=== PATIENT | female | born 1930 | race Two or more races ===

== ENCOUNTER 2019-03-02 12:26 | Observation (INO) | payer MEDICARE ==
[2019-03-02 12:36] VITALS: RESP 18
[2019-03-02 14:11] LABS: Basophils % (A) 1 %; Eosinophils # (A) 0.3 k/uL (0-0.7); Eosinophils % (A) 4 %; HCT 40.3 % (34.0-46.0); HGB 13.3 gm/dL (11.4-16.0); Lymphocytes # (A) 1.7 k/uL (1.0-4.8); Lymphocytes % (A) 20 %; MCH 29.2 pg (25.0-35.0); MCV 88.5 fL (80.0-100.0); Mean Platelet Volume 7.9; Monocytes # (A) 0.5 k/uL (0-1.0); Monocytes % (A) 6 %; Neutrophils # (A) 5.9 k/uL (1.3-7.7); Neutrophils % (A) 68 %; Platelet Count 252 k/uL (150-450); RBC 4.55 m/uL (3.80-5.40); RDW 15.4 % (11.5-15.5); WBC 8.6 k/uL (3.8-10.6)
[2019-03-02 14:19] LABS: INR 0.9 (<1.2); Partial Thromboplastin Time 25.4 sec (22.0-30.0); Prothrombin Time 9.7 sec (9.0-12.0)
--- NOTE | 2019-03-02 14:22 | ED ---
Recheck HPI - General Chief Complaint: Recheck/Abnormal Lab/Rx Stated Complaint: abn EKG, lt jaw pain Time Seen by Provider: 03/02/19 12:38 Source: patient, family, RN notes reviewed Mode of arrival: ambulatory Limitations: no limitations - History of Present Illness Initial Comments: Physical 87-year-old female who was sent in from her doctor's office with complaints of several days a left jaw pain is intermittent. He denies any pain in her arm chest shortness of breath fevers chills nausea vomiting sweats or other symptoms no dental issues no pain with chewing. Concern is for cardiac disease. She currently is pain-free - Related Data Home Medications Medication Instructions Recorded Confirmed Atorvastatin Calcium [Lipitor] 20 mg PO HS 03/02/19 03/02/19 Levothyroxine Sodium [Synthroid] 100 mcg PO DAILY 03/02/19 03/02/19 Losartan [Cozaar] 25 mg PO DAILY 03/02/19 03/02/19 Metoprolol Tartrate [Lopressor] 25 mg PO BID 03/02/19 03/02/19 QUEtiapine [SEROquel] 25 mg PO HS 03/02/19 03/02/19 Allergies Allergy/AdvReac Type Severity Reaction Status Date / Time No Known Allergies Allergy Verified 03/02/19 13:10 Review of Systems ROS Statement: Those systems with pertinent positive or pertinent negative responses have been documented in the HPI. ROS Other: All systems not noted in ROS Statement are negative. Past Medical History Past Medical History: Myocardial Infarction ([place]) Additional Past Medical History / Comment(s): macular degeneration History of Any Multi-Drug Resistant Organisms: None Reported Past Surgical History: Hysterectomy Past Psychological History: No Psychological Hx Reported Smoking Status: Never smoker Past Alcohol Use History: None Reported Past Drug Use History: None Reported General Exam - General Exam Comments Initial Comments: This is a well-developed well-nourished awake alert oriented 3 female Limitations: no limitations General appearance: alert, in no apparent distress Head exam: Present: atraumatic, normocephalic, normal inspection Eye exam: Present: normal appearance, PERRL, EOMI. Absent: scleral icterus, conjunctival injection, periorbital swelling ENT exam: Present: normal exam, mucous membranes moist Neck exam: Present: normal inspection, full ROM, other (No stridor JVD or bruits). Absent: tenderness, meningismus, lymphadenopathy Respiratory exam: Present: normal lung sounds bilaterally. Absent: respiratory distress, wheezes, rales, rhonchi, stridor Cardiovascular Exam: Present: regular rate, normal rhythm, normal heart sounds. Absent: systolic murmur, diastolic murmur, rubs, gallop, clicks GI/Abdominal exam: Present: soft, normal bowel sounds. Absent: distended, tenderness, guarding, rebound, rigid, bruit, pulsatile mass Extremities exam: Present: normal inspection, full ROM, normal capillary refill. Absent: tenderness, pedal edema, joint swelling, calf tenderness Back exam: Present: normal inspection Neurological exam: Present: alert, oriented X3, CN II-XII intact Psychiatric exam: Present: normal affect, normal mood Skin exam: Present: warm, dry, intact, normal color. Absent: rash Course Vital Signs 03/02/19 03/02/19 03/02/19 12:32 15:25 16:30 Temperature 97.9 F Pulse Rate 71 81 72 Respiratory 18 18 18 Rate Blood Pressure 171/75 184/82 182/87 O2 Sat by Pulse 97 94 L 96 Oximetry Medical Decision Making - Medical Decision Making Patient has had intermittent pain in the left jaw questionable changes with nitroglycerin. I did discuss the findings the patient family members as well as Dr. Armijo patient will be admitted for evaluation angina. - Lab Data Result diagrams: 03/02/19 13:47 03/02/19 13:47 Lab Results 03/02/19 03/02/19 03/02/19 Range/Units 13:47 13:47 13:47 WBC 8.6 (3.8-10.6) k/uL RBC 4.55 (3.80-5.40) m/uL Hgb 13.3 (11.4-16.0) gm/dL Hct 40.3 (34.0-46.0) % MCV 88.5 (80.0-100.0) fL MCH 29.2 (25.0-35.0) pg MCHC 33.0 (31.0-37.0) g/dL RDW 15.4 (11.5-15.5) % Plt Count 252 (150-450) k/uL Neutrophils % 68 % Lymphocytes % 20 % Monocytes % 6 % Eosinophils % 4 % Basophils % 1 % Neutrophils # 5.9 (1.3-7.7) k/uL Lymphocytes # 1.7 (1.0-4.8) k/uL Monocytes # 0.5 (0-1.0) k/uL Eosinophils # 0.3 (0-0.7) k/uL Basophils # 0.0 (0-0.2) k/uL PT (9.0-12.0) sec INR (<1.2) APTT (22.0-30.0) sec Sodium 140 (137-145) mmol/L Potassium 4.7 (3.5-5.1) mmol/L Chloride 106 (98-107) mmol/L Carbon Dioxide 26 (22-30) mmol/L Anion Gap 8 mmol/L BUN 24 H (7-17) mg/dL Creatinine 0.86 (0.52-1.04) mg/dL Est GFR (CKD-EPI)AfAm 70 (>60 ml/min/1.73 sqM) Est GFR (CKD-EPI)NonAf 61 (>60 ml/min/1.73 sqM) Glucose 110 H (74-99) mg/dL Calcium 9.6 (8.4-10.2) mg/dL Magnesium 2.3 (1.6-2.3) mg/dL Total Bilirubin 0.6 (0.2-1.3) mg/dL AST 26 (14-36) U/L ALT 16 (9-52) U/L Alkaline Phosphatase 86 (38-126) U/L Creatine Kinase 40 (30-135) U/L Troponin I (0.000-0.034) ng/mL NT-Pro-B Natriuret Pep 707 pg/mL Total Protein 7.0 (6.3-8.2) g/dL Albumin 4.2 (3.5-5.0) g/dL Lipase 120 (23-300) U/L 03/02/19 03/02/19 Range/Units 13:47 13:47 WBC (3.8-10.6) k/uL RBC (3.80-5.40) m/uL Hgb (11.4-16.0) gm/dL Hct (34.0-46.0) % MCV (80.0-100.0) fL MCH (25.0-35.0) pg MCHC (31.0-37.0) g/dL RDW (11.5-15.5) % Plt Count (150-450) k/uL Neutrophils % % Lymphocytes % % Monocytes % % Eosinophils % % Basophils % % Neutrophils # (1.3-7.7) k/uL Lymphocytes # (1.0-4.8) k/uL Monocytes # (0-1.0) k/uL Eosinophils # (0-0.7) k/uL Basophils # (0-0.2) k/uL PT 9.7 (9.0-12.0) sec INR 0.9 (<1.2) APTT 25.4 (22.0-30.0) sec Sodium (137-145) mmol/L Potassium (3.5-5.1) mmol/L Chloride (98-107) mmol/L Carbon Dioxide (22-30) mmol/L Anion Gap mmol/L BUN (7-17) mg/dL Creatinine (0.52-1.04) mg/dL Est GFR (CKD-EPI)AfAm (>60 ml/min/1.73 sqM) Est GFR (CKD-EPI)NonAf (>60 ml/min/1.73 sqM) Glucose (74-99) mg/dL Calcium (8.4-10.2) mg/dL Magnesium (1.6-2.3) mg/dL Total Bilirubin (0.2-1.3) mg/dL AST (14-36) U/L ALT (9-52) U/L Alkaline Phosphatase (38-126) U/L Creatine Kinase (30-135) U/L Troponin I <0.012 (0.000-0.034) ng/mL NT-Pro-B Natriuret Pep pg/mL Total Protein (6.3-8.2) g/dL Albumin (3.5-5.0) g/dL Lipase (23-300) U/L - EKG Data -: EKG Interpreted by Me EKG shows normal: sinus rhythm (Sinus rhythm rate is 77 appear of 01 84 QRS duration 80 QT since QTC 392/443 evidence of LVH nonspecific inferior and anterior configuration's there is demonstrating poor R-wave progression) - Radiology Data Radiology results: report reviewed (I did review the imaging and reports no evidence of acute findings.), image reviewed Disposition Clinical Impression: Jaw pain, non-TMJ, Angina at rest Disposition: ADMITTED IP TO THIS HOSP Condition: Stable Referrals: Clive Miner DO [Primary Care Provider] - 1-2 days
[2019-03-02 14:25] LABS: Albumin 4.2 g/dL (3.5-5.0); Calcium 9.6 mg/dL (8.4-10.2); Magnesium 2.3 mg/dL (1.6-2.3); Total Bilirubin 0.6 mg/dL (0.2-1.3)
[2019-03-02 14:26] LABS: Potassium 4.7 mmol/L (3.5-5.1)
--- NOTE | 2019-03-02 14:58 | XR ---
EXAMINATION TYPE: XR chest 2V DATE OF EXAM: 03/02/2019 COMPARISON: NONE TECHNIQUE: PA and lateral views submitted. HISTORY: Chest pain FINDINGS: The lungs are clear and there is no pneumothorax, pleural effusion, or focal pneumonia. Hypertrophi c and degenerative changes of the spine. No overt failure. Linear changes at the lung bases are most typical atelectasis. IMPRESSION: 1. No acute process.
[2019-03-02] MEDS ORDERED: NITROGLYCERIN SL TABS 0.4 MG TAB SUBLINGUAL STA (15:16)
[2019-03-02] MEDS ORDERED: SODIUM CHLORIDE 0.9% 500 ML 500 ML IV STA (15:16)
[2019-03-02] MEDS ORDERED: NITROGLYCERIN SL TABS 0.4 MG TAB SUBLINGUAL PRN (16:45)
[2019-03-02] MEDS ORDERED: HEPARIN SODIUM,PORCINE 5,000 UNIT/ML 1 ML VIAL IV ONE (16:45)
[2019-03-02] MEDS ORDERED: HEPARIN SOD,PORK IN 0.45% NACL 25,000 UNIT in 0.45% NACL 1 250ML.BAG IV SCH (16:45)
[2019-03-02] MEDS: NITROGLYCERIN OINT 1 INCH/GM PACKET TOPICAL SCH ×2 (17:40→23:13)
[2019-03-02] MEDS: SODIUM CHLORIDE 0.9% 1,000 ML IV SCH (17:40)
[2019-03-02 18:26] VITALS: BMI 24.2
[2019-03-02] MEDS: QUEtiapine 25 MG TAB PO SCH (19:49)
[2019-03-02] MEDS: METOPROLOL TARTRATE 25 MG TAB PO SCH (19:50)
[2019-03-02] MEDS: ATORVASTATIN 20 MG TAB PO SCH (19:50)
--- NOTE | 2019-03-02 22:07 | P.HPIM ---
History of Present Illness H&P Date: 03/02/19 Chief Complaint: Job pain History of presenting complaint: This is a very pleasant 88-year-old patient of Dr. Clive Alcala. Chronic stable medical conditions include coronary artery disease with a GA last August, macular degeneration, hard of hearing and osteoarthritis. Patient for about a week has been complaining of pain in the left side of the face below the left nostril going around to the left jaw. She describes it in a figure of C. there is no neck pain. No precordial pain. No radiation. No associated shortness of breath dizziness lightheadedness. Not related to activity. Not related to chewing activity. No associated neurological symptoms like change of vision headache or weakness. No fever no chills. Patient had gone to see her family doctor he center bed for rule out a cardiac cause. Review of systems: GEN.: None EYES: Decreased vision HEENT: Decreased hearing NECK: None RESPIRATORY: None CARDIOVASCULAR: None GASTROINTESTINAL: None GENITOURINARY: None MUSCULOSKELETAL: Some pain in the joints LYMPHATICS: None HEMATOLOGICAL: None PSYCHIATRY: None NEUROLOGICAL: None Past medical history: GA over a year ago, insomnia, hard of hearing, decreased vision, essential hypertension, hypothyroid Social history: Does not smoke or drink alcohol. Lives with her daughter. Family history: Myocardial infarction Physical examination: VITAL SIGNS: 97.9, 71, 18, 1 71 x 75, 97% room air GENERAL: BMI 24.2, laying in bed, comfortable. EYES: Pupils equal. Conjunctiva normal. HEENT: External appearance of nose and ears normal, oral cavity grossly normal, decreased hearing. NECK: JVD not raised; masses not palpable. HEART: First and second heart sounds are normal; no edema. LUNGS: Respiratory rate normal; clear to auscultation. ABDOMEN: Soft, nontender, liver spleen not palpable, no masses palpable. PSYCH: Alert and oriented x3; mood and affect normal. NEUROLOGICAL: Cranial nerves grossly intact; no facial asymmetry, power and sensation grossly intact. LYMPHATICS: No lymph nodes palpable in the axilla and neck MUSCULOSKELETAL: Evidence of OA especially in the hands Investigations: White count 8.6 hemoglobin 13.3 platelets 252 potassium 4.7 creatinine 0.86 Troponin I 2 negative EKG tracing personally reviewed by me shows nonspecific T-wave changes and poor R-wave progression Chest x-ray film personally reviewed by me shows no obvious infiltrates Assessment: -This is a patient with prior microinfarction presents with pain on the left face for about a week no other associated cardiac symptoms. Troponins are neg ative. Patient has some EKG changes but this well could be chronic. Symptoms are not compatible with acute coronary syndrome. -Coronary artery disease with prior history of GA -Chronic insomnia -Primary osteoarthritis -Hypothyroid -Essential hypertension Plan: Cardiology was consulted. We'll DC the IV heparin. Home medications resumed. Care was discussed the patient. Past Medical History Past Medical History: Myocardial Infarction ([place]) Additional Past Medical History / Comment(s): macular degeneration Last Myocardial Infarction Date:: History of Any Multi-Drug Resistant Organisms: None Reported Past Surgical History: Hysterectomy Additional Past Surgical History / Comment(s): carpal tunnel sx on left hand Past Psychological History: No Psychological Hx Reported Smoking Status: Never smoker Past Alcohol Use History: None Reported Past Drug Use History: None Reported - Past Family History Father Family Medical History: Myocardial Infarction ([place]) Medications and Allergies Home Medications Medication Instructions Recorded Confirmed Type Atorvastatin Calcium [Lipitor] 20 mg PO HS 03/02/19 03/02/19 History Levothyroxine Sodium [Synthroid] 100 mcg PO DAILY 03/02/19 03/02/19 History Losartan [Cozaar] 25 mg PO DAILY 03/02/19 03/02/19 History Metoprolol Tartrate [Lopressor] 25 mg PO BID 03/02/19 03/02/19 History QUEtiapine [SEROquel] 25 mg PO HS 03/02/19 03/02/19 History Allergies Allergy/AdvReac Type Severity Reaction Status Date / Time No Known Allergies Allergy Verified 03/02/19 13:10 Physical Exam Vitals: Vital Signs Temp Pulse Pulse Resp BP BP Pulse Ox 03/02/19 20:00 18 03/02/19 18:42 97 03/02/19 18:30 97.4 F L 67 18 194/75 97 03/02/19 17:30 98.3 F 71 18 163/79 95 03/02/19 16:30 72 18 182/87 96 03/02/19 15:25 81 18 184/82 94 L 03/02/19 12:32 97.9 F 71 18 171/75 97 Intake and Output 03/02/19 03/02/19 03/02/19 06:59 14:59 22:59 Other: Voiding Method Toilet Weight 54.431 kg Results CBC & Chem 7: 03/02/19 13:47 03/02/19 13:47 Labs: Abnormal Lab Results - Last 24 Hours (Table) 03/02/19 Range/Units 13:47 BUN 24 H (7-17) mg/dL Glucose 110 H (74-99) mg/dL Thrombosis Risk Factor Assmnt - Choose All That Apply Any of the Below Risk Factors Present?: No Other Risk Factors: Yes Each Risk Factor Represents 3 Points: Age 75 years or older Thrombosis Risk Factor Assessment Total Risk Factor Score: 3 Thrombosis Risk Factor Assessment Level: Moderate Risk
[2019-03-03 03:05] LABS: Cholesterol 143 mg/dL (<200); HDL Cholesterol 43 mg/dL (40-60); LDL Cholesterol,Calculated 68 mg/dL (0-99); Triglycerides 162 mg/dL (<150)
[2019-03-03] MEDS: ACETAMINOPHEN TAB 325 MG TAB PO PRN (03:53)
[2019-03-03] MEDS ORDERED: LOSARTAN 25 MG TAB PO STA (04:04)
[2019-03-03] MEDS ORDERED: METOPROLOL TARTRATE 25 MG TAB PO STA (04:04)
[2019-03-03] MEDS: NITROGLYCERIN OINT 1 INCH/GM PACKET TOPICAL SCH (06:22)
[2019-03-03] MEDS: LEVOTHYROXINE 100 MCG TAB PO SCH (06:29)
[2019-03-03] MEDS: SODIUM CHLORIDE 0.9% 1,000 ML IV SCH (08:26)
[2019-03-03] MEDS: ASPIRIN 81 MG PO SCH (08:35)
[2019-03-03] MEDS: METOPROLOL TARTRATE 25 MG TAB PO SCH ×2 (08:35→19:51)
[2019-03-03] MEDS ORDERED: ASPIRIN 325 MG TAB PO SCH (09:00)
[2019-03-03] MEDS ORDERED: LOSARTAN 25 MG TAB PO SCH (09:00)
--- NOTE | 2019-03-03 09:19 | P.CRDCN ---
History of Present Illness History of present illness: Patient interviewed and examined. Please see full dictation by nurse practitioner, RIOS Presented with jaw pain on the left side with normal chronic enzymes are normal ECG 3 Enzymes are normal Blood pressure was elevated up to 200/81 mmHg and this morning it is 160/70 mmHg She is on losartan 25 mg daily, metoprolol 25 g twice daily Plan Increase losartan to 25 mg twice daily Add hydrochlorothiazide 25 mg once daily starting today Continue low-dose metoprolol for now May go home once blood pressure is controlled and follow-up with Dr. Silverio within one week Hemoglobin 13.3, potassium 4.7, BUN 24 creatinine 0.86 magnesium 2.3 Sincere enzymes 3 are normal line LDL 68, total cholesterol 143, triglycerides 162 and HDL 43 Past Medical History Past Medical History: Myocardial Infarction ([place]) Additional Past Medical History / Comment(s): macular degeneration Last Myocardial Infarction Date:: History of Any Multi-Drug Resistant Organisms: None Reported Past Surgical History: Hysterectomy Additional Past Surgical History / Comment(s): carpal tunnel sx on left hand Past Psychological History: No Psychological Hx Reported Smoking Status: Never smoker Past Alcohol Use History: None Reported Past Drug Use History: None Reported - Past Family History Father Family Medical History: Myocardial Infarction ([place]) Medications and Allergies Home Medications Medication Instructions Recorded Confirmed Type Atorvastatin Calcium [Lipitor] 20 mg PO HS 03/02/19 03/02/19 History Levothyroxine Sodium [Synthroid] 100 mcg PO DAILY 03/02/19 03/02/19 History Losartan [Cozaar] 25 mg PO DAILY 03/02/19 03/02/19 History Metoprolol Tartrate [Lopressor] 25 mg PO BID 03/02/19 03/02/19 History QUEtiapine [SEROquel] 25 mg PO HS 03/02/19 03/02/19 History Allergies Allergy/AdvReac Type Severity Reaction Status Date / Time No Known Allergies Allergy Verified 03/02/19 13:10 Physical Exam Vitals: Vital Signs Temp Pulse Pulse Resp BP BP BP 03/03/19 08:00 97.8 F 70 18 160/70 03/03/19 06:29 55 L 115/55 03/03/19 04:00 97.4 F L 72 15 203/86 200/81 03/03/19 00:00 98.6 F 56 L 17 149/74 03/02/19 20:00 18 03/02/19 18:42 03/02/19 18:30 97.4 F L 67 18 194/75 03/02/19 17:30 98.3 F 71 18 163/79 03/02/19 16:30 72 18 182/87 03/02/19 15:25 81 18 184/82 03/02/19 12:32 97.9 F 71 18 171/75 Pulse Ox 03/03/19 08:00 97 03/03/19 06:29 03/03/19 04:00 97 03/03/19 00:00 97 03/02/19 20:00 03/02/19 18:42 97 03/02/19 18:30 97 03/02/19 17:30 95 03/02/19 16:30 96 03/02/19 15:25 94 L 03/02/19 12:32 97 Intake and Output 03/02/19 03/03/19 03/03/19 22:59 06:59 14:59 Other: Voiding Method Toilet Toilet # Voids 1 Weight 54.9 kg Results 03/02/19 13:47 03/02/19 13:47 Cardiac Enzymes 03/02/19 03/02/19 03/02/19 Range/Units 13:47 13:47 19:34 AST 26 (14-36) U/L Troponin I <0.012 <0.012 (0.000-0.034) ng/mL 03/03/19 Range/Units 01:45 AST (14-36) U/L Troponin I <0.012 (0.000-0.034) ng/mL Coagulation 03/02/19 Range/Units 13:47 PT 9.7 (9.0-12.0) sec APTT 25.4 (22.0-30.0) sec Lipids 03/02/19 Range/Units 13:47 Triglycerides 162 H (<150) mg/dL Cholesterol 143 (<200) mg/dL HDL Cholesterol 43 (40-60) mg/dL CBC 03/02/19 Range/Units 13:47 WBC 8.6 (3.8-10.6) k/uL RBC 4.55 (3.80-5.40) m/uL Hgb 13.3 (11.4-16.0) gm/dL Hct 40.3 (34.0-46.0) % Plt Count 252 (150-450) k/uL Comprehensive Metabolic Panel 03/02/19 Range/Units 13:47 Sodium 140 (137-145) mmol/L Potassium 4.7 (3.5-5.1) mmol/L Chloride 106 (98-107) mmol/L Carbon Dioxide 26 (22-30) mmol/L BUN 24 H (7-17) mg/dL Creatinine 0.86 (0.52-1.04) mg/dL Glucose 110 H (74-99) mg/dL Calcium 9.6 (8.4-10.2) mg/dL AST 26 (14-36) U/L ALT 16 (9-52) U/L Alkaline Phosphatase 86 (38-126) U/L Total Protein 7.0 (6.3-8.2) g/dL Albumin 4.2 (3.5-5.0) g/dL Current Medications Generic Name Dose Route Start Last Admin Trade Name Freq PRN Reason Stop Dose Admin Acetaminophen 650 mg 03/02/19 19:42 03/03/19 03:53 Tylenol Tab PO 650 mg Q4HR PRN Administration Fever and/ or Pain Aspirin 81 mg 03/03/19 09:00 03/03/19 08:35 Aspirin PO 81 mg DAILY RYAN Administration Atorvastatin Calcium 20 mg 03/02/19 21:00 03/02/19 19:50 Lipitor PO 20 mg HS RYAN Administration Hydrochlorothiazide 25 mg 03/03/19 09:15 Hydrodiuril PO DAILY RYAN Levothyroxine Sodium 100 mcg 03/03/19 06:30 03/03/19 06:29 Synthroid PO 100 mcg DAILY@0630 RYAN Administration Losartan Potassium 25 mg 03/03/19 21:00 Cozaar PO BID RYAN Metoprolol Tartrate 25 mg 03/02/19 21:00 03/03/19 08:35 Lopressor PO 25 mg BID RYAN Administration Nitroglycerin 0.4 mg 03/02/19 16:45 Nitrostat SUBLINGUAL Q5M PRN Chest Pain Quetiapine Fumarate 25 mg 03/02/19 21:00 03/02/19 19:49 Seroquel PO 25 mg HS RYAN Administration Intake and Output 08/02/19 08/03/19 08/03/19 22:59 06:59 14:59 Other: Voiding Method Toilet Toilet # Voids 1 Weight 54.9 kg 03/02/19 13:47 03/02/19 13:47
[2019-03-03] MEDS: HYDROCHLOROTHIAZIDE 25 MG TAB PO SCH (11:00)
[2019-03-03] MEDS: amLODIPine 10 MG TAB PO SCH (14:24)
--- NOTE | 2019-03-03 14:53 | P.PN ---
Progress Note - Text Progress Note Date: 03/03/19 Chief Complaint: Left facial pain Interval history: This is a very pleasant 88-year-old patient of Dr. Clive Alcala. Chronic stable medical conditions include coronary artery disease with a [place] last August, macular degeneration, hard of hearing and osteoarthritis. Patient for about a week has been complaining of pain in the left side of the face below the left nostril going around to the left jaw. She describes it in a figure of C. there is no neck pain. No precordial pain. No radiation. No associated shortness of breath dizziness lightheadedness. Not related to activity. Not related to chewing activity. No associated neurological symptoms like change of vision headache or weakness. No fever no chills. Patient had gone to see her family doctor he center bed for rule out a cardiac cause. Today-feeling better. Seen by cardiology. Not felt to be cardiac presentation. Some of the blood pressure medication adjusted. No chest pain or shortness of breath Review of systems: Was done for constitutional, cardiovascular, GI, pulmonary. relevant finding as above Active Medications Acetaminophen (Tylenol Tab) 650 mg PO Q4HR PRN PRN Reason: Fever and/ or Pain Last Admin: 03/03/19 03:53 Dose: 650 mg Documented by: Amlodipine Besylate (Norvasc) 10 mg PO DAILY [facility] Last Admin: 03/03/19 14:24 Dose: 10 mg Documented by: Aspirin (Aspirin) 81 mg PO DAILY [facility] Last Admin: 03/03/19 08:35 Dose: 81 mg Documented by: Atorvastatin Calcium (Lipitor) 20 mg PO HS [facility] Last Admin: 03/02/19 19:50 Dose: 20 mg Documented by: Hydrochlorothiazide (Hydrodiuril) 25 mg PO DAILY [facility] Last Admin: 03/03/19 11:00 Dose: 25 mg Documented by: Levothyroxine Sodium (Synthroid) 100 mcg PO DAILY@0630 [facility] Last Admin: 03/03/19 06:29 Dose: 100 mcg Documented by: Losartan Potassium (Cozaar) 25 mg PO BID [facility] Metoprolol Tartrate (Lopressor) 25 mg PO BID [facility] Last Admin: 03/03/19 08:35 Dose: 25 mg Documented by: Nitroglycerin (Nitrostat) 0.4 mg SUBLINGUAL Q5M PRN PRN Reason: Chest Pain Quetiapine Fumarate (Seroquel) 25 mg PO HS [facility] Last Admin: 03/02/19 19:49 Dose: 25 mg Documented by: Physical examination: VITAL SIGNS: 97.8, 70, 18, 160-70, 97% room air GENERAL: Sitting up, comfortable EYES: Pupils equal. Conjunctiva normal. HEENT: External appearance of nose and ears normal, oral cavity grossly normal, decreased hearing. NECK: JVD not raised; masses not palpable. HEART: First and second heart sounds are normal; no edema. LUNGS: Respiratory rate normal; clear to auscultation. ABDOMEN: Soft, nontender, liver spleen not palpable, no masses palpable. PSYCH: Alert and oriented x3; mood and affect normal. MUSCULOSKELETAL: Evidence of OA especially in the hands Investigations: Troponin I 3 negative Previous labs White count 8.6 hemoglobin 13.3 platelets 252 potassium 4.7 creatinine 0.86 EKG tracing personally reviewed by me shows nonspecific T-wave changes and poor R-wave progression Chest x-ray film personally reviewed by me shows no obvious infiltrates Assessment: -This is a patient with prior microinfarction presents with pain on the left face for about a week no other associated cardiac symptoms. Troponins are negative. Patient has some EKG changes but this well could be chronic. Symptoms are not compatible with acute coronary syndrome. -Coronary artery disease with prior history of [place] -Chronic insomnia -Primary osteoarthritis -Hypothyroid -Essential hypertension, uncontrolled Plan: Cardiology was consulted. We'll DC the IV heparin. Home medications resumed. Care was discussed the patient. Blood pressures still running high this afternoon at 181/73. We'll add amlodipine.
--- NOTE | 2019-03-03 15:44 | P.CRDCN ---
History of Present Illness Consult date: 03/03/19 Chief complaint: Left jaw pain History of present illness: This is an 88-year-old female with past medical history of hypertension, hyperlipidemia, hypothyroidism, recurrent depression. Patient gives history of having pain on the left side of her face and the left jaw area for one week. She states the areas a little tender. She denies any injury to the area. She denies any dental problems. Patient denies any chest pain or shortness of breath. Patient came into [facility] emergency center for evaluation. CBC, electrolytes, liver function tests all within normal limits, troponin negative on 3 draws. Human 24 and creatinine 0.86. Triglycerides 162, cholesterol 143, LDL 68, HDL 43, lipase 120. Initial EKG was a normal sinus rhythm without acute ST changes. Chest x-ray showed no acute process. Initial blood pressure 203/86. Review Of Systems: Constitutional: No fever, no chills, no night sweats. No weight change. No weakness, fatigue or lethargy. No daytime sleepiness. EENT: No headache. No blurred vision or double vision, no loss of vision. No loss of Hearing, no ringing in the ears, no dizziness. No nasal drainage or congestion. No epistaxis. No sore throat. Reports left jaw pain Lungs: No shortness of breath, cough, no sputum production. No wheezing. Cardiovascular: No chest pain, no lower extremity edema. No palpitations. No paroxysmal nocturnal dyspnea. No orthopnea. No lightheadedness or dizziness. No syncopal episodes. Abdominal: No abdominal pain. No nausea, vomiting. No diarrhea. No constipation. No bloody or tarry stools.. No loss of appetite. Genitourinary: No dysuria, increased frequency, urgency. No urinary retention. Musculoskeletal: No myalgias. No muscle weakness, no gait dysfunction, no frequent falls. No back pain. No neck pain. Integumentary: No wounds, no lesions. No rash or pruritus. No unusual bruising. No change in hair or nails. Neurologic: No aphasia. No facial droop. No change in mentation. No head injury. No headache. No paralysis. No paresthesia. Psychiatric: No depression. No anxiety. No mood swings. Endocrine: No abnormal blood sugars. No weight change. No excessive sweating or thirst. No cold intolerance. No weight change. Gen: This is an 88-year-old female. Patient is sitting up in bed and appears to be comfortable and in no acute distress. HEENT: Head is atraumatic, normocephalic. Pupils equal, round. Sclerae is anicteric. Mild tenderness to the left jaw. NECK: Supple. No JVD. No lymphadenopathy. No thyromegaly. LUNGS: Clear to auscultation. No wheezes or rhonchi. No intercostal retractions. HEART: Regular rate and rhythm. No murmur. ABDOMEN: Soft. Bowel sounds are present. No masses. No tenderness. EXTREMITIES: No pedal edema. No calf tenderness. NEUROLOGICAL: Patient is awake, alert and oriented x3. Cranial nerves 2 through 12 are grossly intact. Assessment: Left jaw pain, acute coronary syndrome ruled out Uncontrolled hypertension. Hyperlipidemia Plan: Increase losartan frequency to 25 mg twice daily Add hydrochlorothiazide 25 mg daily Continue Lopressor 25 mg twice daily Start aspirin 81 mg daily and continue Lipitor 20 mg at bedtime Further recommendations to follow based upon clinical course. Thank you kindly for this consultation. Nurse practitioner note has been reviewed, I agree with documented findings and plan of care. Patient was seen and examined. Past Medical History Past Medical History: Myocardial Infarction (PA) Additional Past Medical History / Comment(s): macular degeneration Last Myocardial Infarction Date:: History of Any Multi-Drug Resistant Organisms: None Reported Past Surgical History: Hysterectomy Additional Past Surgical History / Comment(s): carpal tunnel sx on left hand Past Psychological History: No Psychological Hx Reported Smoking Status: Never smoker Past Alcohol Use History: None Reported Past Drug Use History: None Reported - Past Family History Father Family Medical History: Myocardial Infarction (PA) Medications and Allergies Home Medications Medication Instructions Recorded Confirmed Type Atorvastatin Calcium [Lipitor] 20 mg PO HS 03/02/19 03/02/19 History Levothyroxine Sodium [Synthroid] 100 mcg PO DAILY 03/02/19 03/02/19 History Losartan [Cozaar] 25 mg PO DAILY 03/02/19 03/02/19 History Metoprolol Tartrate [Lopressor] 25 mg PO BID 03/02/19 03/02/19 History QUEtiapine [SEROquel] 25 mg PO HS 03/02/19 03/02/19 History Allergies Allergy/AdvReac Type Severity Reaction Status Date / Time No Known Allergies Allergy Verified 03/02/19 13:10 Physical Exam Vitals: Vital Signs Temp Pulse Pulse Resp BP BP BP 03/03/19 11:00 97.5 F L 65 18 181/73 03/03/19 08:00 97.8 F 70 18 160/70 03/03/19 06:29 55 L 115/55 03/03/19 04:00 97.4 F L 72 15 203/86 200/81 03/03/19 00:00 98.6 F 56 L 17 149/74 03/02/19 20:00 18 03/02/19 18:42 03/02/19 18:30 97.4 F L 67 18 194/75 03/02/19 17:30 98.3 F 71 18 163/79 03/02/19 16:30 72 18 182/87 03/02/19 15:25 81 18 184/82 03/02/19 12:32 97.9 F 71 18 171/75 Pulse Ox 03/03/19 11:00 96 03/03/19 08:00 97 03/03/19 06:29 03/03/19 04:00 97 03/03/19 00:00 97 03/02/19 20:00 03/02/19 18:42 97 03/02/19 18:30 97 03/02/19 17:30 95 03/02/19 16:30 96 03/02/19 15:25 94 L 03/02/19 12:32 97 Intake and Output 03/02/19 03/03/19 03/03/19 22:59 06:59 14:59 Other: Voiding Method Toilet Toilet # Voids 1 Weight 54.9 kg Results 03/02/19 13:47 03/02/19 13:47 Cardiac Enzymes 03/02/19 03/02/19 03/02/19 Range/Units 13:47 13:47 19:34 AST 26 (14-36) U/L Troponin I <0.012 <0.012 (0.000-0.034) ng/mL 03/03/19 Range/Units 01:45 AST (14-36) U/L Troponin I <0.012 (0.000-0.034) ng/mL Coagulation 03/02/19 Range/Units 13:47 PT 9.7 (9.0-12.0) sec APTT 25.4 (22.0-30.0) sec Lipids 03/02/19 Range/Units 13:47 Triglycerides 162 H (<150) mg/dL Cholesterol 143 (<200) mg/dL HDL Cholesterol 43 (40-60) mg/dL CBC 03/02/19 Range/Units 13:47 WBC 8.6 (3.8-10.6) k/uL RBC 4.55 (3.80-5.40) m/uL Hgb 13.3 (11.4-16.0) gm/dL Hct 40.3 (34.0-46.0) % Plt Count 252 (150-450) k/uL Comprehensive Metabolic Panel 03/02/19 Range/Units 13:47 Sodium 140 (137-145) mmol/L Potassium 4.7 (3.5-5.1) mmol/L Chloride 106 (98-107) mmol/L Carbon Dioxide 26 (22-30) mmol/L BUN 24 H (7-17) mg/dL Creatinine 0.86 (0.52-1.04) mg/dL Glucose 110 H (74-99) mg/dL Calcium 9.6 (8.4-10.2) mg/dL AST 26 (14-36) U/L ALT 16 (9-52) U/L Alkaline Phosphatase 86 (38-126) U/L Total Protein 7.0 (6.3-8.2) g/dL Albumin 4.2 (3.5-5.0) g/dL Current Medications Generic Name Dose Route Start Last Admin Trade Name Clarenceq PRN Reason Stop Dose Admin Acetaminophen 650 mg 03/02/19 19:42 03/03/19 03:53 Tylenol Tab PO 650 mg Q4HR PRN Administration Fever and/ or Pain Aspirin 81 mg 03/03/19 09:00 03/03/19 08:35 Aspirin PO 81 mg DAILY RYAN Administration Atorvastatin Calcium 20 mg 03/02/19 21:00 03/02/19 19:50 Lipitor PO 20 mg HS RYAN Administration Hydrochlorothiazide 25 mg 03/03/19 09:15 03/03/19 11:00 Hydrodiuril PO 25 mg DAILY YRAN Administration Levothyroxine Sodium 100 mcg 03/03/19 06:30 08/03/19 06:29 Synthroid PO 100 mcg DAILY@0630 RYAN Administration Losartan Potassium 25 mg 03/03/19 21:00 Cozaar PO BID RYAN Metoprolol Tartrate 25 mg 03/02/19 21:00 03/03/19 08:35 Lopressor PO 25 mg BID RYAN Administration Nitroglycerin 0.4 mg 03/02/19 16:45 Nitrostat SUBLINGUAL Q5M PRN Chest Pain Quetiapine Fumarate 25 mg 03/02/19 21:00 03/02/19 19:49 Seroquel PO 25 mg HS RYAN Administration Intake and Output 03/02/19 03/03/19 03/03/19 22:59 06:59 14:59 Other: Voiding Method Toilet Toilet # Voids 1 Weight 54.9 kg 03/02/19 13:47 03/02/19 13:47
[2019-03-03] MEDS: QUEtiapine 25 MG TAB PO SCH (19:51)
[2019-03-03] MEDS: ATORVASTATIN 20 MG TAB PO SCH (19:51)
[2019-03-03] MEDS: LOSARTAN 25 MG TAB PO SCH (19:51)
[2019-03-04] MEDS: LEVOTHYROXINE 100 MCG TAB PO SCH (05:49)
[2019-03-04] MEDS: ACETAMINOPHEN TAB 325 MG TAB PO PRN ×2 (05:49→12:44)
[2019-03-04] MEDS: amLODIPine 10 MG TAB PO SCH (08:47)
[2019-03-04] MEDS: METOPROLOL TARTRATE 25 MG TAB PO SCH (08:48)
[2019-03-04] MEDS: ASPIRIN 81 MG PO SCH (08:48)
[2019-03-04] MEDS: HYDROCHLOROTHIAZIDE 25 MG TAB PO SCH (08:48)
[2019-03-04] MEDS: LOSARTAN 25 MG TAB PO SCH (08:48)
[2019-03-04 11:00] VITALS: BP 143/67; PULSE 68; TEMP 97.4
--- NOTE | 2019-03-04 14:51 | P.PN ---
Subjective Progress Note Date: 03/04/19 This is an 88-year-old female with past medical history of hypertension, hyperlipidemia, hypothyroidism, recurrent depression. Patient gives history of having pain on the left side of her face and the left jaw area for one week. She states the areas a little tender. She denies any injury to t he area. She denies any dental problems. Patient denies any chest pain or shortness of breath. Patient came into [facility] emergency center for evaluation. CBC, electrolytes, liver function tests all within normal limits, troponin negative on 3 draws. Human 24 and creatinine 0.86. Triglycerides 162, cholesterol 143, LDL 68, HDL 43, lipase 120. Initial EKG was a normal sinus rhythm without acute ST changes. Chest x-ray showed no acute process. Initial blood pressure 203/86. 8/: Patient states that her jaw pain has completely resolved. She is not sure what makes a difference. She denies any chest pain or shortness of breath. No lightheadedness, dizziness. Blood pressure 146/61. Patient will be continued on losartan and hydrochlorothiazide as currently ordered and plan for follow-up on Tuesday in the office. Gen: This is an 88-year-old female. Patient is sitting up in bed and appears to be comfortable and in no acute distress. HEENT: Head is atraumatic, normocephalic. Pupils equal, round. Sclerae is anicteric. Mild tenderness to the left jaw. NECK: Supple. No JVD. No lymphadenopathy. No thyromegaly. LUNGS: Clear to auscultation. No wheezes or rhonchi. No intercostal retractions. HEART: Regular rate and rhythm. No murmur. ABDOMEN: Soft. Bowel sounds are present. No masses. No tenderness. EXTREMITIES: No pedal edema. No calf tenderness. NEUROLOGICAL: Patient is awake, alert and oriented x3. Cranial nerves 2 through 12 are grossly intact. Assessment: Left jaw pain, acute coronary syndrome ruled out Uncontrolled hypertension. Hyperlipidemia Plan: Continue losartan 25 mg twice daily, hydrochlorothiazide 25 mg daily Continue Lopressor 25 mg twice daily Start aspirin 81 mg daily and continue Lipitor 20 mg at bedtime Patient is cleared for discharge home with plan for follow-up in the office on Tuesday. Thank you kindly for this consultation. Nurse practitioner note has been reviewed, I agree with documented findings and plan of care. Patient was seen and examined. Objective - Vital Signs Vital signs: Vital Signs Temp 97.5 F L 03/04/19 08:00 Pulse 80 03/04/19 08:00 Resp 18 03/04/19 08:00 BP 141/60 03/04/19 08:00 Pulse Ox 99 03/04/19 08:00 Intake & Output 03/03/19 03/04/19 03/04/19 18:59 06:59 18:59 Intake Total 360 30 10 Balance 360 30 10 Weight 53.9 kg Intake: IV 30 10 Invasive Line 1 30 10 Oral 360 Other: Voiding Method Toilet # Voids 4 1 - Labs CBC & Chem 7: 03/02/19 13:47 03/02/19 13:47
--- NOTE | 2019-03-04 15:52 | P.DS ---
Providers Date of admission: 03/02/19 16:50 Expected date of discharge: 03/04/19 Attending physician: Alejandro Armijo Consults: 03/02/19 16:45 Consult Physician Urgent Consulting Provider: Brice Quinn Consult Reason/Comments: Jaw pain Do you want consulting provider notified?: Yes Primary care physician: Clive Miner [facility] Course: Hospital course: This is a very pleasant 88-year-old patient of Dr. Clive Alcala. Chronic stable medical conditions include coronary artery disease with a MA last August, macular degeneration, hard of hearing and osteoarthritis. Patient for about a week has been complaining of pain in the left side of the face below the left nostril going around to the left jaw. She describes it in a figure of C. there is no neck pain. No precordial pain. No radiation. No associated shortness of breath dizziness lightheadedness. Not related to activity. Not related to chewing activity. No associated neurological symptoms like change of vision headache or weakness. No fever no chills. Patient had gone to see her family doctor he center bed for rule out a cardiac cause. Patient blood pressures running high. That was doing better by the time of discharge. This was not felt to be a coronary event. Care was discussed with the patient and daughter the bedside. Consultation: [facility] Physical examination: VITAL SIGNS: 97.4, 68, 18, 143/67 , 97% room air GENERAL: Sitting up, comfortable EYES: Pupils equal. Conjunctiva normal. HEENT: External appearance of nose and ears normal, oral cavity grossly normal, decreased hearing. NECK: JVD not raised; masses not palpable. HEART: First and second heart sounds are normal; no edema. LUNGS: Respiratory rate normal; clear to auscultation. ABDOMEN: Soft, nontender, liver spleen not palpable, no masses palpable. Investigations: Troponin I 3 negative Previous labs White count 8.6 hemoglobin 13.3 platelets 252 potassium 4.7 creatinine 0.86 EKG tracing personally reviewed by me shows nonspecific T-wave changes and poor R-wave progression Chest x-ray film personally reviewed by me shows no obvious infiltrates Discharge diagnosis: -Essential hypertension, uncontrolled -Coronary artery disease with prior history of MA -Chronic insomnia -Primary osteoarthritis -Hypothyroid Disposition: Home Patient Condition at Discharge: Stable Plan - Discharge Summary Discharge Rx Participant: No New Discharge Prescriptions: New Losartan [Cozaar] 25 mg PO BID #60 tab Hydrochlorothiazide [Hydrodiuril] 25 mg PO DAILY #30 tab Aspirin 81 mg PO DAILY chew amLODIPine [Norvasc] 5 mg PO DAILY #30 tab Continue Metoprolol Tartrate [Lopressor] 25 mg PO BID Levothyroxine Sodium [Synthroid] 100 mcg PO DAILY QUEtiapine [SEROquel] 25 mg PO HS Atorvastatin Calcium [Lipitor] 20 mg PO HS Discontinued Losartan [Cozaar] 25 mg PO DAILY Discharge Medication List Atorvastatin Calcium [Lipitor] 20 mg PO HS 03/02/19 [History] Levothyroxine Sodium [Synthroid] 100 mcg PO DAILY 03/02/19 [History] Metoprolol Tartrate [Lopressor] 25 mg PO BID 03/02/19 [History] QUEtiapine [SEROquel] 25 mg PO HS 03/02/19 [History] Aspirin 81 mg PO DAILY chew 03/04/19 [Rx] Hydrochlorothiazide [Hydrodiuril] 25 mg PO DAILY #30 tab 03/04/19 [Rx] Losartan [Cozaar] 25 mg PO BID #60 tab 03/04/19 [Rx] amLODIPine [Norvasc] 5 mg PO DAILY #30 tab 03/04/19 [Rx] Follow up Appointment(s)/Referral(s): Brian Almanzar MD [STAFF PHYSICIAN] - 1 Week (Follow-up with Dr. Silverio/Regina Ghosh on March 07, at 4 PM at [facility]. Appointment scheduled by Dr. Silverio) Clive Miner DO [Primary Care Provider] - 1 Week (office closed; please call to make appointment) Patient Instructions/Handouts: Angina (DC) Activity/Diet/Wound Care/Special Instructions: daily BP log Discharge Disposition: HOME SELF-CARE
== END 2019-03-04 14:03 | disposition home or self-care (01) ==
LOC: EC 12:26 → 1SOBS 16:50 → 3SCARD 23:35
PROVIDERS: ADMIT Hospitalist; ATTEND Hospitalist
DX: I10 Essential (primary) hypertension (principal); I25.10 Atherosclerotic heart disease of native coronary artery without angina pectoris; I25.2 Old myocardial infarction; F51.04 Psychophysiologic insomnia; H91.90 Unspecified hearing loss, unspecified ear; E03.9 Hypothyroidism, unspecified; R68.84 Jaw pain; R51 Headache; R94.31 Abnormal electrocardiogram [ECG] [EKG]; M19.042 Primary osteoarthritis, left hand; M19.041 Primary osteoarthritis, right hand; F33.9 Major depressive disorder, recurrent, unspecified; E78.5 Hyperlipidemia, unspecified; Z79.899 Other long term (current) drug therapy; Z79.890 Hormone replacement therapy; Z82.49 Family history of ischemic heart disease and other diseases of the circulatory system
CPT/HCPCS: 96376; 96361; 96365; 99285; 36415; 93005; 83880; 80061; 80053; 82550; 83690; 83735; 84484 ×2; 85025; 85610; 85730; 71046; G0378 ×4; J1644 ×2